=== PATIENT | female | born 1980 | race Caucasian/White ===

== ENCOUNTER 2016-08-08 21:15 | Emergency (ER) ==
[2016-08-08 21:32] VITALS: BP 133/82
[2016-08-08 22:46] LABS: MANUAL DIFF NEEDED? NO
[2016-08-08 22:52] LABS: BASO% 0.1 % (0.0-0.8); EOS# 0.15 X1000 (0.0-0.7); HEMATOCRIT 37.7 % (37.0-47.0); HEMOGLOBIN 12.8 g/dL (12.0-16.0); IMM GRAN# 0.03 X1000 (0.0-0.04); IMM GRAN% 0.4 % (0.0-0.5); LYMPH# 3.01 X1000 (1.2-3.4); LYMPH% 40.5 % (20.5-51.1); MCH 27.8 PG (27-31); MCV 81.8 FL (81-99); MONO# 0.51 X1000 (0.11-0.59); MONO% 6.9 % (1.7-9.3); MPV 8.7 FL (7.4-10.4); NEUT% 50.1 % (42.2-75.2); PLT 256 X1000 (130-400); RBC 4.61 XMIL (4.2-5.4)
[2016-08-08 23:16] LABS: AGAP 9; ALBUMIN 3.9 g/dL (3.5-5.0); ALKALINE PHOSPHATASE 59 U/L (32-104); AMYLASE 50 U/L (20-200); BUN 9 mg/dL (8-22); CALCIUM 8.9 mg/dL (8.8-10.2); CHLORIDE 105 mmol/L (98-107); COSMO 275; GOT 23 U/L (10-30); GPT 22 U/L (10-36); LIPASE 33 U/L (13-60); POTASSIUM 4.4 mmol/L (3.5-5.1); SODIUM 138 mmol/L (136-145); TCO2 24 mmol/L (25-35); TOTAL PROTEIN 7.1 g/dL (6.3-8.3)
--- NOTE | 2016-08-08 23:33 | PROVIDER DOCUMENTATION ---
HPI-Abdominal Pain/GI Problem - General Source: patient - History of Present Illness-ABD Nature of Presenting Problems: 36 y/o LUQ pain for 1 month with intermittent nausea and vomiting. Abdominal Pain Onset Location: reports: LUQ Pain Radiation: reports: no radiation Quality of Pain: reports: aching Severity in ED: reports: moderate Onset/Duration: reports: other (1 months) Timing: reports: still present Associated Symptoms: reports: nausea, vomiting <Jose Guadalupe Laws - Last Filed: 08/08/16 23:34> <Rajesh Willis - Last Filed: 08/09/16 01:21> - General Chief Complaint: Abdominal Pain Stated Complaint: ABD PAIN Time Seen by Provider: 08/08/16 22:19 Allergies/Adverse Reactions: Patient Allergies Allergy/AdvReac Type Severity Reaction Status Date / Time haloperidol [From Haldol] Allergy Unknown Verified 11/29/15 19:30 haloperidol lactate * Allergy Unknown Verified 11/29/15 19:30 [From Haldol] Home Medications: Home Medication List Medication Instructions Recorded Confirmed Last Taken Type Omeprazole [Prilosec] 20 mg PO DAILY@0700 #20 capsule 08/09/16 Unknown Rx Polyethylene Glycol 3350 [Miralax] 1 cap PO DAILY #1 powder 08/09/16 Unknown Rx Review of Systems - Adult - REVIEW OF SYSTEMS - ADULT Constitutional: denies: chills, fever Gastrointestinal: reports: abdominal pain, nausea, vomiting. denies: diarrhea <Jose Guadalupe Laws - Last Filed: 08/08/16 23:34> Past History - Adult - PAST MEDICAL HISTORY-ADULT Review of Records: reports: Old Records Reviewed, Nursing Assessment Review, Medications Reviewed Major Childhood Illnesses: reports: denies history Cardiovascular: reports: denies history Respiratory: reports: denies history Gastrointestinal: reports: GERD Genitourinary: reports: denies history Musculoskeletal: reports: chronic pain, fibromyalgia Neurological: reports: headaches/migraines Psychiatric: reports: depression, ptsd Other Conditions: reports: denies history - PRIOR SURGERIES/PROCEDURES Surgical/Procedure History: reports: - IMMUNIZATION STATUS Childhood Immunizations: See Nurse Assessment Flu Vaccine: See Nurse Assessment - FAMILY HISTORY Family History: reviewed, not pertinent - SOCIAL HISTORY Smoking: non-smoker Living Situation: family <Jose Guadalupe Laws - Last Filed: 08/08/16 23:34> Physical Exam-General - PHYSICAL EXAM-ADULT Initial Vital Signs Reviewed: Yes - CONSTITUTIONAL General Appearance: appears well, alert, no apparent distress - EYES Eyes: PERRL/EOMI, pink conjunctivae - HEAD, EARS, NOSE, MOUTH & THROAT HENMT: moist mucous membranes, normal ENT inspection, TMs normal, pharynx normal - NECK Neck: non-tender, full range of motion, supple, normal inspection - RESPIRATORY Respiratory: lungs clear, normal breath sounds, no pleuratic chest pain, no respiratory distress, no accessory muscle use - CARDIOVASCULAR Cardiovascular: normal peripheral pulses, regular rate, rhythm - GASTROINTESTINAL (ABDOMEN) Abdominal Exam: normal bowel sounds, soft, guarding, tenderness (LUQ). negative : McBurney's point tenderness, Angeles's sign, obturator sign, Rovsing's sign - MUSCULOSKELETAL Back Exam: no vertebral tenderness, CVA tenderness (left) - SKIN Integumentary: normal color, normal turgor, warm/dry - NEUROLOGIC Neurologic: grossly normal, no motor/sensory deficits - PSYCHIATRIC Psych/Mental Status: normal mood/affect, normal thought content, normal thought process, oriented x 3 <Jose Guadalupe Laws - Last Filed: 08/08/16 23:34> Progress - PLAN OF CARE/RESULTS Progress/Plan/Lab Results: Orders Category Date Time Status Saline Loc DIRECTED Care 08/08/16 22:19 Active NPO Diet 08/08/16 22:[address] ABD/PELVIS W/ IV CONT ONLY [CT] Stat Exams 08/08/16 23:22 Taken AMYLASE [CHEM] Stat Lab 08/08/16 22:43 Completed CBC WITH ELECTRONIC DIFF [HEME] Stat Lab 08/08/16 22:43 Completed COMPREHENSIVE METABOLIC PANEL [CHEM] Stat Lab 08/08/16 22:43 Completed LIPASE [CHEM] Stat Lab 08/08/16 22:43 Completed TEST-URINE [PREG] Stat Lab 08/08/16 23:[address] W/POSS RFLX CULT [URINALYSIS] Stat Lab 08/08/16 23:30 Completed URINE CULTURE [RM] Routine Lab 08/09/16 00:21 Ordered Morphine Med 08/09/16 01:13 Discontinued 4 mg IV NOW ONE Ondansetron [Zofran] Med 08/09/16 01:13 Discontinued 4 mg IV NOW ONE Pantoprazole [Protonix] Med 08/09/16 01:13 Discontinued 40 mg IV NOW ONE Sodium Chloride 0.9% Med 08/09/16 01:13 Discontinued 10 ml INJ NOW ONE Laboratory Tests 08/08/16 08/08/16 08/08/16 22:43 22:43 23:30 WBC 7.43 RBC 4.61 Hgb 12.8 Hct 37.7 MCV 81.8 MCH 27.8 MCHC 34.0 RDW Std Deviation 12.8 Plt Count 256 MPV 8.7 Immature Gran % (Auto) 0.4 Neut % (Auto) 50.1 Lymph % (Auto) 40.5 [place] % (Auto) 6.9 Eos % (Auto) 2.0 Baso % (Auto) 0.1 Immature Gran # (Auto) 0.03 Neut # (Auto) 3.72 Lymph # (Auto) 3.01 [place] # (Auto) 0.51 Eos # (Auto) 0.15 Baso # (Auto) 0.01 Sodium 138 Potassium 4.4 Chloride 105 Carbon Dioxide 24 L Anion Gap 9 BUN 9 Creatinine 0.7 Estimated GFR/1.73 m2 > 60 BUN/Creatinine Ratio 13 Glucose 102 Calculated Osmolality 275 Calcium 8.9 Total Bilirubin 0.20 AST 23 ALT 22 Alkaline Phosphatase 59 Total Protein 7.1 Albumin 3.9 Globulin 3.0 Albumin/Globulin Ratio 1.0 Amylase 50 Lipase 33 Urine Source Urine Color Urine Clarity Urine pH Ur Specific [place] Urine Protein Urine Ketones Urine Blood Urine Nitrite Urine Bilirubin Urine Urobilinogen Urine Microscopic RBC Urine WBC Urine Microscopic WBC Ur Epithelial Cells Urine Bacteria Urine Glucose Urine Test NEGATIVE 08/08/16 23:30 WBC RBC Hgb Hct MCV MCH MCHC RDW Std Deviation Plt Count MPV Immature Gran % (Auto) Neut % (Auto) Lymph % (Auto) [place] % (Auto) Eos % (Auto) Baso % (Auto) Immature Gran # (Auto) Neut # (Auto) Lymph # (Auto) [place] # (Auto) Eos # (Auto) Baso # (Auto) Sodium Potassium Chloride Carbon Dioxide Anion Gap BUN Creatinine Estimated GFR/1.73 m2 BUN/Creatinine Ratio Glucose Calculated Osmolality Calcium Total Bilirubin AST ALT Alkaline Phosphatase Total Protein Albumin Globulin Albumin/Globulin Ratio Amylase Lipase Urine Source CLEAN CATCH Urine Color YELLOW Urine Clarity CLEAR Urine pH 6.5 Ur Specific [place] 1.015 Urine Protein NEGATIVE Urine Ketones NEGATIVE Urine Blood NEGATIVE Urine Nitrite NEGATIVE Urine Bilirubin NEGATIVE Urine Urobilinogen NORMAL Urine Microscopic RBC <10 Urine WBC NEGATIVE Urine Microscopic WBC <10 Ur Epithelial Cells <10 Urine Bacteria 2+ Urine Glucose NEGATIVE Urine Test Vital Signs - 24 hr 08/08/16 21:28 Temperature 98 F Pulse Rate 83 Respiratory 18 Rate Blood Pressure 133/82 O2 Sat by Pulse 98 Oximetry - CT/MRI 1 CT Study: Abdomen, Pelvis Impression: Normal (Small cystic mass in the R ovary may be benign prominent follicle or a small functional or hemorrhagic cyst. No other abnormalities or cause for symptoms identified. - prelim radiology report) <Rajesh Willis - Last Filed: 08/09/16 01:21> Departure <Jose Guadalupe Laws - Last Filed: 08/08/16 23:34> - Departure Time of Disposition Order: 01:14 Certified Medical Emergency: Emergent <Rajesh Willis - Last Filed: 08/09/16 01:21> - Departure DIAGNOSIS: Solitary pulmonary nodule on lung CT Abdominal pain Qualifiers: Abdominal location: unspecified location Qualified Code(s): R10.9 - Unspecified abdominal pain Ovarian cyst Qualifiers: Laterality: right Qualified Code(s): N83.201 - Unspecified ovarian cyst, right side Disposition: HOME 01 Condition: Stable Additional Instructions: ED Follow Up Instructions: You have been treated by a care provider in the Emergency Department. These instructions are being provided to you so you can have an understanding of how to care for yourself upon discharge. Upon discharge from the Emergency Department, you are responsible for making arrangements for follow-up care by a physician of your choice. Take all prescribed medications as directed. Return to the Emergency Department immediately for any new or worsening symptoms. You may call the Physician Referral phone number at [phone] to obtain a list of Physicians who are taking new patients. Prescriptions: Polyethylene Glycol 3350 [Miralax] 1 cap PO DAILY #1 powder Omeprazole [Prilosec] 20 mg PO DAILY@0700 #20 capsule Referrals: Salinas Krause MD [Primary Care Provider] - Dontrell Junior MD [STAFF PHYSICIAN] - Rajesh Triana MD [STAFF PHYSICIAN] - Forms: Return to School/Parent Work Instructions: Abdominal Pain, Adult, [id number], Ovarian Cyst, [id number], Omeprazole capsules (sprinkle caps) - Rx, Polyethylene Glycol powder Attestation - Scribe Verification/Attestation Scribe:: Jose Guadalupe Laws Acting as Scribe for:: Rajesh Willis Scribe documention review:: This chart was documented by a scribe and accurately reflects the service the provider performed and the decisions made by the provider. <Jose Guadalupe Laws - Last Filed: 08/08/16 23:34> - Physician/ FELICIA Attestation Patient care was provided by Advanced Practice Provider:: Yes Advanced Practice Provider:: Rajesh Willis Advanced Practice Provider documentation review:: The Mid-level provider documentation, treatment plan and medical decision making was reviewed by the physician who agrees with all treatment and medical decision making by the P. <Rajesh Willis - Last Filed: 08/09/16 01:21> Physician Attestation - Physician Attestation I, the provider, attest to the following statement:: Rajesh Willis Physician documentation Attestation:: This documentation recorded by the scribe accurately reflects the service I personally performed and the decisions made by me. <Rajesh Willis - Last Filed: 08/09/16 01:21>
[2016-08-08 23:52] LABS: URINE SOURCE CLEAN CATCH
[2016-08-09 00:16] LABS: BILIRUBIN URINE NEGATIVE (NEGATIVE); BLOOD URINE NEGATIVE (NEGATIVE); CLARITY CLEAR (CLEAR); COLOR YELLOW; GLUCOSE URINE NEGATIVE (NEGATIVE); LEUKOCYTES URINE NEGATIVE (NEGATIVE); NITRITE URINE NEGATIVE (NEGATIVE); PH URINE 6.5; PROTEIN URINE NEGATIVE (NEGATIVE); SP GRAVITY URINE 1.015; UROBILINOGEN URINE NORMAL
[2016-08-09 00:20] LABS: URINE RBC <10 /HPF (<10); URINE WBC <10 /HPF (<10)
[2016-08-09 00:21] LABS: URINE CULTURE PL NEEDED? YES; URINE EPITHELIAL CELLS <10 /HPF (<10)
[2016-08-09] MEDS ORDERED: SODIUM CHLORIDE 0.9% INJ ONE (01:13)
[2016-08-09] MEDS ORDERED: PROTONIX IV ONE (01:13)
[2016-08-09] MEDS ORDERED: MORPHINE IV ONE (01:13)
[2016-08-09] MEDS ORDERED: ZOFRAN IV ONE (01:13)
--- NOTE | 2016-08-09 08:33 | Diag Imaging Result Document ---
PROCEDURE NAME: CT ABD/PELVIS W/ IV CONT ONLY - 08/08/2016 CT ABDOMEN AND PELVIS WITH INTRAVENOUS CONTRAST: COMPARISON: 02/10/2015. FINDINGS: There is a 10 mm noncalcified nodule in the right lower lobe. This area was not included on the prior exam. There is fatty infiltration of the liver. Normal spleen, pancreas, gallbladder, and adrenal glands. There are several tiny renal cysts. No solid renal masses. No hydronephrosis. Normal aorta. No bowel obstruction. No inflammation about the cecum. No abscess. No free air. The urinary bladder is distended and appears normal. Normal uterus. There is a 3.0 cm right ovarian cyst. There are tiny bilateral ovarian cysts as well. No free fluid in the pelvis. IMPRESSION: 1. Mild fatty infiltration of the liver. 2. 1.0 cm nodule in the right lower lobe. 3. 3.0 cm right ovarian cyst. A preliminary report was given at 1:08 a.m.. MTDD
== END 2016-08-09 01:47 | disposition home or self-care (01) ==
LOC: P.ED 21:15
DX: N83.201 Unspecified ovarian cyst, right side (principal); R91.1 Solitary pulmonary nodule; R10.12 Left upper quadrant pain; K76.0 Fatty (change of) liver, not elsewhere classified; R11.2 Nausea with vomiting, unspecified; G89.29 Other chronic pain; M79.7 Fibromyalgia; R10.812 Left upper quadrant abdominal tenderness
CPT/HCPCS: 74177; 80053; 81001; 81025; 82150; 83690; 85025; 87088; 96374; 96375; C9113; J2270; J2405; Q9967; S0164